=== PATIENT | male | born 1955 | race Caucasian/White ===

== ENCOUNTER 2022-08-01 00:50 | Day surgery (SDC) | payer MEDICARE, SELFPAY ==
[2022-07-26 10:23] VITALS: BMI 23.2
[2022-08-01 06:25] VITALS: BP 165/86; PULSE 72; RESP 17; TEMP 36.4; O2SAT 99
[2022-08-01] MEDS: LACTATED RINGERS 1,000 ML 150 ML IV CONT (06:36)
--- NOTE | 2022-08-01 07:16 | WPDANESEPPF ---
Anes - Initial Pre Proc Eval Procedure: Operation Date: 08/01/22 07:30 Proposed Procedures p Screening Colonoscopy - Ehsan Camp MD Date/Time: 08/01/22 07:16 Surgeon: Ehsan Camp MD Pre Op Diagnosis: Hx of colon polyps, Fam Hx of colon cancer Patient Data Age: 66 Gender: M Height: 1.85 m Weight: 81.3 kg Last Vital Signs Temp 97.6 F 08/01/22 06:25 Pulse 72 08/01/22 06:25 Resp 17 08/01/22 06:25 BP 165/86 H 08/01/22 06:25 Pulse Ox 99 08/01/22 06:25 O2 Del Method Room Air 08/01/22 06:25 Allergies Allergy/AdvReac Type Severity Reaction Status Date / Time No Known Allergies Allergy Verified 08/01/22 06:24 Home Medications Medication Instructions Recorded Confirmed Type latanoprost 0.005 % eye drops 1 drp EACH EYE DAILY 07/25/22 07/26/22 History levothyroxine 50 mcg tablet 50 mcg PO DAILY 07/25/22 07/26/22 History Patient hx anesthesia problems: none Family hx anesthesia problems: none Results Review: All pre-operative results and documents have been reviewed as part of the pre-operative evaluation. [facility] Social History Social History Smoking status: Never smoker Alcohol intake: current Alcohol use details: socially Substance use: never Substance use type: does not use Living arrangements: with family Spiritual care concerns: No Anes - Eval Final PreProcedure Day of Procedure 08/01/22 07:16 Patient weight: normal Heart: regular rate and rhythm Lungs: clear to auscultation Airway: Mallampati scale class II Neurological: alert and oriented Last oral intake: >/= 8 hours ASA classification: III Emergent: no Anesthetic plan: proceed Anesthesia type and monitoring: general GIVS and standard monitoring Results Review: All pre-operative results and documents have been reviewed as part of the pre-operative evaluation. Informed Consent: The patient's anesthetic plan and its attendant risks and benefits were discussed with the patient/family/POA. Questions were solicited and answers provided to the satisfaction of the patient/family/POA.
--- NOTE | 2022-08-01 07:23 | P.PNAN_ITS ---
Anes - Initial Pre Proc Eval Procedure: Operation Date: 08/01/22 07:30 Proposed Procedures p Screening Colonoscopy - Ehsan Camp MD Date/Time: 08/01/22 07:23 Surgeon: Ehsan Camp MD Pre Op Diagnosis: Hx of colon polyps, Fam Hx of colon cancer Patient Data Age: 66 Gender: M Height: 1.85 m Weight: 81.3 kg Last Vital Signs Temp 97.6 F 08/01/22 06:25 Pulse 72 08/01/22 06:25 Resp 17 08/01/22 06:25 BP 165/86 H 08/01/22 06:25 Pulse Ox 99 08/01/22 06:25 O2 Del Method Room Air 08/01/22 06:25 Allergies Allergy/AdvReac Type Severity Reaction Status Date / Time No Known Allergies Allergy Verified 08/01/22 06:24 Home Medications Medication Instructions Recorded Confirmed Type latanoprost 0.005 % eye drops 1 drp EACH EYE DAILY 07/25/22 07/26/22 History levothyroxine 50 mcg tablet 50 mcg PO DAILY 07/25/22 07/26/22 History Patient hx anesthesia problems: none Family hx anesthesia problems: none Results Review: All pre-operative results and documents have been reviewed as part of the pre- operative evaluation. [facility] Social History Social History Smoking status: Never smoker Alcohol intake: current Alcohol use details: socially Substance use: never Substance use type: does not use Living arrangements: with family Spiritual care concerns: No Anes - Eval Final PreProcedure Day of Procedure 08/01/22 07:23 Patient weight: normal Heart: regular rate and rhythm Lungs: clear to auscultation Airway: Mallampati scale class II Neurological: alert and oriented Last oral intake: >/= 8 hours ASA classification: III Emergent: no Anesthetic plan: proceed Anesthesia type and monitoring: general GIVS and standard monitoring Results Review: All pre-operative results and documents have been reviewed as part of the pre- operative evaluation. Informed Consent: The patient's anesthetic plan and its attendant risks and benefits were discussed with the patient/family/POA. Questions were solicited and answers provided to the satisfaction of the patient/family/POA.
[2022-08-01] MEDS: SIMETHICONE ORAL SUSPENSION 20 MG/0.3 ML 30 ML BOTTLE 0.6 ML IRRIGATION (07:36)
--- NOTE | 2022-08-01 07:45 | PM.HPGS ---
History of Present Illness History of Present Illness Consent: Risks, benefits, and alternatives have been discussed and questions answered. Patient agrees to proceed with procedure. Chief complaint: Hx of colon polyps, Fam Hx of colon cancer Narrative: Arsenio Godinez is a 66 year old male Presents for screening colonoscopy. Patient's current weight appetite and bowel movements are normal. Family history is significant that his mother had colon cancer. At 1 point the past patient had a diminutive polyp. Patient presents today for screening colonoscopy. Review of Systems Review of Systems: Review of systems noncontributory. [facility] Social History Social History Smoking status: Never smoker Alcohol intake: current Alcohol use details: socially Substance use: never Substance use type: does not use Living arrangements: with family Spiritual care concerns: No Meds Home Medications and Allergies Home Medications Medication Instructions Recorded Confirmed Type latanoprost 0.005 % eye drops 1 drp EACH EYE DAILY 07/25/22 07/26/22 History levothyroxine 50 mcg tablet 50 mcg PO DAILY 07/25/22 07/26/22 History Allergies Allergy/AdvReac Type Severity Reaction Status Date / Time No Known Allergies Allergy Verified 08/01/22 06:24 Vital Signs Vital Signs - 24 hr 08/01/22 06:25 Temperature 97.6 F Pulse Rate 72 Respiratory Rate 17 Blood Pressure 165/86 H Pulse Oximetry 99 Oxygen Delivery Room Air Exam Narrative: Physical exam reveals patient to be alert. Vital signs stable. HEENT exam is unremarkable. Patient is anicteric. Lungs are clear to auscultation and percussion. Heart is without murmur or extra sounds. Abdomen bowel sounds present soft nontender with no organomegaly. Digital external rectal exam is normal. Assessment and Plan Assessment and plan (1) Family history of colon cancer in mother: Code(s): Z80.0 - Family history of malignant neoplasm of digestive organs Status: Acute Assessment and Plan: Patient's mother had colon cancer. At 1 point he may have had a diminutive polyp. Plan for screening colonoscopy now consider this a 5 year intervals in the future.
[2022-08-01 07:47] VITALS: BP 118/72; PULSE 79; RESP 20; O2SAT 98
[2022-08-01 07:57] VITALS: BP 125/84; PULSE 67; RESP 21; O2SAT 99
[2022-08-01 08:07] VITALS: BP 143/81; PULSE 66; RESP 20; O2SAT 100
== END 2022-08-01 08:15 | disposition home or self-care (01) ==
PROVIDERS: PCP Physician Assistant; Visit Provider Internal Medicine Gastroenterology
PROC: 0DJD8ZZ Inspection of Lower Intestinal Tract, Via Natural or Artificial Opening Endoscopic (ICD-10-PCS; CPT 45378; principal; 2022-08-01 07:30)
DX: Z12.11 Encounter for screening for malignant neoplasm of colon (principal); K57.30 Diverticulosis of large intestine without perforation or abscess without bleeding; K64.8 Other hemorrhoids; Z86.010 Personal history of colon polyps; Z80.0 Family history of malignant neoplasm of digestive organs
CPT/HCPCS: G0105; J2704; J7120